=== PATIENT | male | born 1955 | race Caucasian/White ===

== ENCOUNTER 2016-06-12 10:07 | Day surgery (SDC) | payer OTHER ==
[2016-06-12 12:24] VITALS: TEMP 98.6
[2016-06-12 12:50] VITALS: RESP 20
[2016-06-12 12:55] VITALS: BP 122/71; PULSE 54; O2SAT 97
== END 2016-06-12 13:05 | disposition home or self-care (01) | DRG 951 ==
LOC: SURG 10:07
PROVIDERS: ATTEND Internal Medicine Gastroenterology
DX: Z12.11 Encounter for screening for malignant neoplasm of colon (principal); D12.0 Benign neoplasm of cecum; K57.30 Diverticulosis of large intestine without perforation or abscess without bleeding; K64.4 Residual hemorrhoidal skin tags; K64.8 Other hemorrhoids
CPT/HCPCS: 99001; J2001; J2704